=== PATIENT | female | born 2005 | race Caucasian/White ===

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

== ENCOUNTER 2025-02-22 13:02 | Emergency (ER) | payer OTHER, SELFPAY ==
--- NOTE | ~2025-02-22 | XR_ITS ---
HISTORY: FALL, 5TH METATARSAL PAIN COMPARISON: 03/11/2015 TECHNIQUE: 3 views of the left foot were performed FINDINGS: No acute fracture or dislocation is appreciated. No significant degenerative disease is noted. The base of the fifth metatarsal is intact. No calcaneal spur is noted. No significant soft tissue swelling is present. IMPRESSION: No acute fracture or dislocation, as detailed above. Reviewed, dictated and finalized at location A.
--- OUTSIDE RECORDS SUMMARY | 2025-02-22 13:05 | XMS_ITS | Referral Summary ---
Author Organization [facility] [address] Address [address] [place] [id number] Care Team Providers Care Inspector Floor Sub Assembly Name Role Phone Jaye Gonsalez MD Primary Care Provider [phone] Cinthia Ferguson MD Unavailable [phone] Allergies Active Allergy Reactions Criticality Noted Date Comments Codeine Sulfa (Sulfonamide Antibiotics) Urticaria Medium 12/2020 Medications No known medications Active Problems No known active problems Social History Tobacco Use Types Packs/Day Years Used Date Smoking Tobacco: Never Assessed Comments Unknown Sex and Gender Information Value Date Recorded Sex Assigned at Not on file Legal Sex Female 2:23 PM WIRE CHARGER Gender Identity Not on file Sexual Orientation Not on file Last Filed Vital Signs Vital Sign Reading Time Taken Comments Blood Pressure 128/76 12/14/2023 6:58 PM WIRE CHARGER Pulse 80 12/14/2023 6:58 PM WIRE CHARGER Temperature 36 C (96.8 F) 12/14/2023 6:58 PM WIRE CHARGER Respiratory Rate 16 12/14/2023 6:58 PM WIRE CHARGER Oxygen Saturation 99% 12/14/2023 6:58 PM WIRE CHARGER Inhaled Oxygen Concentration - - Weight 117 kg (258 lb) 12/19/2022 11:56 AM WIRE CHARGER Height 180.3 cm (5' 11 ) 12/19/2022 11:56 AM WIRE CHARGER Body Mass Index 35.98 12/19/2022 11:56 AM WIRE CHARGER Plan of Treatment Not on file [place] [address] [place] [address] [facility] [address] [facility] Care Teams Inspector Floor Sub Assembly Relationship Specialty Start Date End Date Jaye Gonsalez MD [address] [place] [id number] PCP - General 03/22/21 Cinthia Ferguson MD [address] [place] [id number] Pediatrics 03/22/21
--- OUTSIDE RECORDS SUMMARY | 2025-02-22 13:05 | XMS_ITS | Clinical Summary ---
Author Organization [facility] Address [address] [place] [address] Care Team Providers Care Prenatal Genetic Counselor Name Role Phone Jaye Gonsalez MD Primary Care Provider [phone] Source Comments [facility],non-owned Affiliates and Associated Physician Practices is amultiple site organization consisting of ambulatory clinics and hospital sitesin [place], [place], [place] and [place]. This disclosure is being madepursuant to the Care Everywhere program and may not contain all information available regarding this patient. Last updated 18.[employer] Allergies Active Allergy Reactions Criticality Noted Date Comments Codeine Swelling 11/20/2016 Sulfa Drugs Urticaria Medium 05/27/2021 Medications * Be aware that medications may not be up to date on this document. Alwaysverify current medications with the patient. Medication Sig Dispensed Refills Start Date End Date Status Melatonin 3 MG Active amoxicillin-clavulanat e (AUGMENTIN) 875-125 MG tablet Take 875 mg by mouth 2 times daily with morning and evening meal Active Active Problems Problem Noted Date Diagnosed Date Post concussion syndrome 05/30/2021 Closed fracture of nasal bone 05/27/2021 Family History Medical History Relation Name Comments Anesthesia Reaction Neg Hx Craniofacial Syndrome Neg Hx Sudd. <30 Neg Hx Social History Tobacco Use Types Packs/Day Years Used Date Smoking Tobacco: Passive Smo ke Exposure - Never Smoker Smokeless Tobacco: Never Alcohol Use Standard Drinks/Week Comments No 0 (1 standard drink = 0.6 oz pur e alcohol) Sex and Gender Information Value Date Recorded Sex Assigned at Not on file Gender Identity Not on file Sexual Orientation Not on file Last Filed Vital Signs Vital Sign Reading Time Taken Comments Blood Pressure 126/88 04/29/2018 11:18 PM CDT Pulse 100 04/29/2018 11:18 PM CDT Temperature 36.8 C (98.3 F) 04/29/2018 11:18 PM CDT Respiratory Rate 20 04/29/2018 11:18 PM CDT Oxygen Saturation 96% 07/27/2017 10:49 PM CDT Inhaled Oxygen Concentration - - Weight 111 kg (244 lb 11.4 oz) 04/29/2018 11:18 PM CDT Height 176 cm (5' 9.29 ) 04/29/2018 11:18 PM CDT Body Mass Index 35.83 04/29/2018 11:18 PM CDT Plan of Treatment Health Maintenance Due Date Last Done Comments HIV SCREENING 2019 HPV VACCINE (1 - 3-dose series) 2019 CHLAMYDIA/GONORRHEA SCREENING 2020 MENINGOCOCCAL (Group B) VACC INE SHARED DECISION-MAKING (1 of 2 - Standard) 2020 HEPATITIS C SCREENING 11/11/2022 DTAP/TDAP/TD VACCINES (1 - Tdap) 2023 HEPATITIS B VACCINE (1 of 3 - 19+ 3-dose series) 2023 COVID-19 VACCINE (1 - 2023-2 5 season) 2024 INFLUENZA VACCINE (#1) 2024 DEPRESSION SCREENING 11/26/2024 ZOSTER VACCINE (1 of 2) 2054 HIB VACCINE Aged Out No longer eligi ble based on patient's age to complete this topic MENINGOCOCCAL GROUPS A/C/Y/W VACCINE Aged Out No longer eligible b ased on patient's age to complete this topic PNEUMOCOCCAL VACCINE Aged Out No long er eligible based on patient's age to complete this topic Care Teams Prenatal Genetic Counselor Relationship Specialty Start Date End Date Jaye Gonsalez MD [address] [place] [phone] PCP - General Pediatrics 05/27/21
--- OUTSIDE RECORDS SUMMARY | 2025-02-22 13:05 | XMS_ITS | Clinical Summary ---
Author [place] [facility] [place] [address] [place] Address [address] [place] [id number] Care Team Providers Care Pound Attendant Name Role Phone Jaye Gonsalez MD Primary Care Provider [phone] Cinthia Ferguson MD Unavailable + [phone] Allergies Active Allergy Reactions Criticality Noted Date Comments Codeine Sulfa (Sulfonamide Antibiotics) Urticaria Medium 12/2020 Medications No known medications Active Problems No known active problems Surgical History Surgery Date Site/Laterality Comments TONSILLECTOMY AND ADENOIDECTOMY TYMPANOSTOMY TUBE PLACEMENT Medical History Medical History Date Comments No pertinent past medical history Family History Relation Name Status Comments Father Mother Alive Social History Tobacco Use Types Packs/Day Years Used Date Smoking Tobacco: Never Assessed Comments Unknown Sex and Gender Information Value Date Recorded Sex Assigned at Not on file Legal Sex Female 2:23 PM TRIM MOUNTER Gender Identity Not on file Sexual Orientation Not on file Obstetrics History Last Filed Vital Signs Vital Sign Reading Time Taken Comments Blood Pressure 128/76 12/14/2023 6:58 PM TRIM MOUNTER Pulse 80 12/14/2023 6:58 PM TRIM MOUNTER Temperature 36 C (96.8 F) 12/14/2023 6:58 PM TRIM MOUNTER Respiratory Rate 16 12/14/2023 6:58 PM TRIM MOUNTER Oxygen Saturation 99% 12/14/2023 6:58 PM TRIM MOUNTER Inhaled Oxygen Concentration - - Weight 117 kg (258 lb) 12/19/2022 11:56 AM TRIM MOUNTER Height 180.3 cm (5' 11 ) 12/19/2022 11:56 AM TRIM MOUNTER Body Mass Index 35.98 12/19/2022 11:56 AM TRIM MOUNTER Plan of Treatment Health Maintenance Due Date Last Done Comments Depression Screening 2004 Hepatitis C Screening 2004 Meningococcal B Vaccine (1 o f 2 - Standard) 2020 Regular Well Visit/Exam 18-64 2022 Influenza Vaccine (#1) 2024 DTaP/Tdap/Td Vaccine (8 - Td or Tdap) 03/22/2031 03/22/2021, 11/02/2016, 06/29/2010, Additional history exists Hepatitis B Screening Completed 05/22/2005 , 03/21/2005, 01/18/2005, Additional history exists Pneumococcal vaccine <65 Completed 006, 05/22/2005, 03/21/2005, Additional history exists Varicella Vaccines Completed 11/02/2016, 08/19/2007 HPV Vaccines Completed 07/03/2019, 07/20/2017 Meningococcal Vaccine Completed 06/30/2022, 016 Insurance [facility] Care Teams Pound Attendant Relationship Specialty Start Date End Date Jaye Gonsalez MD [address] [place] [id number] PCP - General 03/22/21 Cinthia Ferguson MD [address] [place] [address] Pediatrics 03/22/21
--- OUTSIDE RECORDS SUMMARY | 2025-02-22 13:05 | XMS_ITS | Clinical Summary ---
Author Organization [facility] Address [address] [place] [address] Care Team Providers Care Duplicating Machine Mechanic Name Role Phone Cinthia Ferguson MD Primary Care Provider Allergies Active Allergy Reactions Criticality Noted Date Comments Codeine Swelling 11/24/2018 Medications No known medications Active Problems No known active problems Social History Tobacco Use Types Packs/Day Years Used Date Smoking Tobacco: Never Smokeless Tobacco: Never Alcohol Use Standard Drinks/Week Comments No 0 (1 standard drink = 0.6 oz pur e alcohol) Comments No Sex and Gender Information Value Date Recorded Sex Assigned at Not on file Legal Sex Female 8:47 PM CDT Gender Identity Not on file Sexual Orientation Not on file Last Filed Vital Signs Vital Sign Reading Time Taken Comments Blood Pressure 108/62 12/31/2018 6:43 PM SLITTER AND REWINDER Pulse 82 12/31/2018 6:43 PM SLITTER AND REWINDER Temperature 37 C (98.6 F) 12/31/2018 6:43 PM SLITTER AND REWINDER Respiratory Rate 16 12/31/2018 6:43 PM SLITTER AND REWINDER Oxygen Saturation 98% 12/31/2018 6:43 PM SLITTER AND REWINDER Inhaled Oxygen Concentration - - Weight 119.3 kg (263 lb) 12/31/2018 6:43 PM SLITTER AND REWINDER Height - - Body Mass Index - - Plan of Treatment Health Maintenance Due Date Last Done Comments Hepatitis C Virus (HCV) Screening 2004 Meningococcal B Immunization (1 of 2 - Standard) 2020 Influenza Immunization (#1) 2024 SARS-COV-2 Immunization (2023- season) 2024 Respiratory Syncytial Virus (RSV) Immunization (Adult) (1 - 1-dose 75+ series) 2079 Hepatitis B Immunization Completed 005, 03/21/2005, 01/18/2005, Additional history exists Pneumococcal Immunization Combined Aged Out 01/16/2006, 05/22/2005, 03/21/2005, Additional history exists No longer eligible based on patient's age to complete this topic Measles Mumps Rubella (MMR) Immunization Discontinued 06/29/2010, 01/16/2006 Polio (IPV) Immunization Discontinued 010, 05/22/2005, 03/21/2005, Additional history exists DTaP/Tdap/Td Immunization Discontinued 2015, 06/29/2010, 02/27/2007, Additional history exists Meningococcal Immunization (ACWY) Aged Out 11/02/2016 No longer eligible based on patient's age to complete this topic TdaP Immunization Completed 11/02/2016 Varicella Immunization Discontinued 11/02/2016, 2006 Hepatitis A Immunization Discontinued 07/03/2019, 06/27 Human Papillomavirus (HPV) Immunization Completed 07/03/2019, 07/20/2017 Rotavirus Immunization Aged Out No lo nger eligible based on patient's age to complete this topic Insurance MEDICAID [facility] [employer] Care Teams Duplicating Machine Mechanic Relationship Specialty Start Date End Date Cinthia Ferguson MD [address] [place] [address] [address] [place] [address] PCP - General Pediatrics 11/24/18
[2025-02-22 13:15] VITALS: BP 150/96; PULSE 103; RESP 20; TEMP 37.1; O2SAT 99
--- NOTE | 2025-02-22 13:21 | ED.LOWEXIN ---
HPI - Extremity Injury (Lower) General Chief Complaint: Extremity Injury, Lower Stated Complaint: Fall Injury/Left Foot Time Seen by Provider: 02/22/25 13:21 Source: patient Mode of arrival: ambulatory Limitations: no limitations History of Present Illness HPI Narrative: 19-year-old female presents with complaint of pain to lateral aspect of left foot. Patient tripped and twisted left foot while in backyard yesterday. Left foot fell into a hole causing her to fall. Isolated injury. Patient ambulatory with slight gait. CMS intact. All systems reviewed and negative except as noted above. Related Data Allergies Allergy/AdvReac Type Severity Reaction Status Date / Time codeine Allergy Unknown blows up Verified 02/22/25 13:18 like a balloon Sulfa (Sulfonamide Allergy Hives Verified 02/22/25 13:18 Antibiotics) Review of Systems Review of Systems: CONSTITUTIONAL: Denies fever, chills, or sweats. EYES: Denies visual changes, redness, or discharge. ENT: Denies rhinorrhea, congestion, sore throat, or otalgia. CARDIOVASCULAR: Denies chest pain, palpitations, or edema. RESPIRATORY: Denies cough or dyspnea. GASTROINTESTINAL: Denies abdominal pain, nausea, vomiting, or diarrhea. GENITOURINARY: Denies dysuria or hematuria. SKIN: Denies rash or itching. MUSCULOSKELETAL: Denies back pain, joint pain, or myalgia. Reports pain and swelling to left foot. NEUROLOGIC: Denies headache, numbness, or weakness. PSYCHIATRIC: Denies anxiety or depression. All other systems reviewed are negative, except as documented in HPI. [facility] Past Medical History Medical History Iron deficiency Vitamin D deficiency Surgical History Surgical History H/O adenoidectomy Hx of tonsillectomy Family History Family History Mother Recurrent otitis media Father Diabetes mellitus Pancreatitis, chronic Alcohol abuse Social History Social History Smoking status: Never smoker Alcohol intake: never Substance use: never Living arrangements: with family Occupation/Education: student Gender identity (if verbalized by the patient): Female Sexual Orientation (if Verbalized by the Patient): Straight or Heterosexual Comments At time of signature, agree with nursing past medical, surgical, social and family history. There is no relevant family history pertinent to the presenting complaint. Exam Narrative: GENERAL: This is a well-nourished, well-developed patient, in no apparent distress. HEAD: normocephalic, atraumatic. EYES: PERRL. Sclera clear/white. Vision is grossly intact. EARS: External ears normal NOSE: External nose normal NECK: Neck supple, non-tender without lymphadenopathy, masses or thyromegaly. CARDIOVASCULAR: Regular rate and rhythm without murmurs, gallops, or rubs. RESPIRATORY: Clear to auscultation. Breath sounds equal bilaterally. No wheezes, rales, or rhonchi. SKIN: warm, Dry, intact with no suspicious lesions or rash, good texture and turgor. NEURO: awake, alert, and oriented to person, place and time. There were no obvious focal neurologic abnormalities. EXTREMITIES: Tenderness to lateral aspect left foot near the 5th metatarsal bone. Mild swelling noted. No deformity. CMS intact. Course Course Level of Care: Express Care Visit Vital Signs Vital signs: Vital Signs Temperature 37.1 C 02/22/25 13:15 Pulse Rate 103 H 02/22/25 13:15 Respiratory Rate 02/22/25 13:15 Blood Pressure 150/96 H 02/22/25 13:15 Pulse Oximetry 99 02/22/25 13:15 Oxygen Delivery Room Air 02/22/25 13:15 Temperature 37.1 C 02/22/25 13:15 Pulse Rate 103 H 02/22/25 13:15 Respiratory Rate 20 02/22/25 13:15 Blood Pressure 150/96 H 02/22/25 13:15 Pulse Oximetry 99 02/22/25 13:15 Oxygen Delivery Room Air 02/22/25 13:15 Reviewed MDM - Extremity Injury (Lower) MDM Narrative Medical decision making narrative: x-ray left foot negative for fracture. Patient placed in Tarun wrap. Recommend rest, ice, elevation and [id number] pain meds. Please be advised this is a medical document. It is intended for [id number] communication. It is written in medical language and may contain unfamiliar abbreviations or verbiage. Medical documents are intended to carry relevant information, facts as evident, and the clinical opinion of the practitioner at the time of the encounter. This report may have been done utilizing a voice recognition system. Attempts have been made to correct errors. However, there may be uncorrected grammatical, spelling, and recognition errors present. The file time of this note does not necessarily represent the time of service. Differential Diagnosis Differential diagnosis: Likely ankle sprain and strain, ankle fracture and other ( Foot fracture, foot sprain) Discharge Plan Discharge Clinical Impression: Sprain of left foot Qualifiers: Encounter type: initial encounter Qualified Code(s): S93.602A - Unspecified sprain of left foot, initial encounter Patient Disposition: Home, Self-Care Condition: Stable Instructions: Antibiotic Form, Foot Sprain (ED) Additional Instructions: the x-ray of your left foot was negative for fracture. Wear Tarun wrap for comfort. Were supportive shoe such as tennis shoes. Avoid flip-flops and sandals. Take ibuprofen or Tylenol every 6-8 hours as needed for pain. Elevate when at rest. Follow-up with your doctor if symptoms are not improving. Patient Language: Citizen Of [place] Follow-up/Referrals: PHYSICIAN,RECRUITMENT CONSULTANT [Primary Care Provider] - Time of Disposition: 14:28
== END 2025-02-22 14:35 | disposition home or self-care (01) ==
PROVIDERS: Emergency Provider Nurse Practitioner Family
DX: S93.602A Unspecified sprain of left foot, initial encounter (principal); W17.2XXA Fall into hole, initial encounter
CPT/HCPCS: 73630; 99213; G0463